=== PATIENT | male | born 1950 | race Caucasian/White ===

== ENCOUNTER 2017-10-20 12:46 | Emergency (ER) | payer BC, OTHER ==
[~2017-10-20] VITALS: Ht 172.7 cm; Wt 80.0 kg
[~2017-10-20 12:46] MED LIST: ASPIRIN325 MG PO; LIPITOR80 MG PO; NORVASC10 MG PO
[2017-10-20 14:02] LABS: BASOPHIL (%) 0.2 % (0-1); EOSINOPHIL (%) 1.2 % (0-5); EOSINOPHIL COUNT 0.1 K/uL (0-0.3); HEMATOCRIT 44.2 % (38.0-50.0); HEMOGLOBIN 15.4 G/DL (12.5-16.6); IMMATURE GRANULOCYTE (%) 0.2 % (0.0-0.7); LYMPHOCYTE COUNT 0.8 K/uL (1.0-2.8); MCH 31.8 PG (29.0-34.0); MCHC 34.8 G/DL (30.0-36.0); MCV 91.1 FL (86-99); MONOCYTE (%) 5.6 % (3-12); MONOCYTE COUNT 0.3 K/uL (0-0.8); NEUTROPHIL (%) 76.8 % (45-76); NEUTROPHIL COUNT 3.7 K/uL (1.8-6.4); PLATELET COUNT 150 K/uL (156-360); RBC DIS.WIDTH-CV 11.9 % (11.8-14.6); RBC DIS.WIDTH-SD 39.7 % (39-53); RED BLOOD COUNT 4.85 M/uL (4.00-5.50); WHITE BLOOD COUNT 4.9 K/uL (4.1-10.2)
[2017-10-20 14:10] LABS: ALBUMIN 3.6 g/dL (3.2-4.8); CHLORIDE 109 mEq/L (99-109); POTASSIUM 3.8 mEq/L (3.7-5.4); SODIUM 143 mEq/L (136-147)
[2017-10-20 14:13] LABS: GLUCOSE 131 mg/dL (70-99); PTT 26.1 SEC (25-37); TOTAL PROTEIN 5.7 g/dL (6.4-8.3)
[2017-10-20 14:15] LABS: TOTAL BILIRUBIN 1.1 mg/dL (0.0-1.0)
[2017-10-20 14:16] LABS: ALKALINE PHOSPHATASE 86 IU/L (3-129); CREATININE 0.8 mg/dL (0.6-1.3); GFR ESTIMATE (CALCULATED) > 59 mL/min/ (58.99-99999)
[2017-10-20 14:17] LABS: UREA NITROGEN (BUN) 19 mg/dL (9-23)
[2017-10-20 14:18] LABS: AST (GOT) 20 IU/L (2-34)
[2017-10-20 14:19] LABS: ALT (GPT) 23 IU/L (3-49)
[2017-10-20 14:20] LABS: LIPASE 24 U/L (1.0-51.0)
[2017-10-20 14:25] LABS: TROP-I INTERPRETATION NEGATIVE; TROPONIN-I < 0.01 ng/mL (0.0-0.30)
[2017-10-20] MEDS ORDERED: LEVAQUIN750 MG PO (16:48)
[2017-10-20] MEDS ORDERED: ZOFRAN4 MG PO (16:48)
[2017-10-20] MEDS ORDERED: PERCOCET 5/31 TABLET PO (16:48)
[2017-10-20] MEDS ORDERED: FLAGYL500 MG PO (16:48)
[2017-10-20 17:24] VITALS: BP 131/72
== END 2017-10-20 17:31 | disposition home or self-care (01) ==
LOC: EME 12:46
PROVIDERS: Emergency Medicine
DX: K52.9 Noninfective gastroenteritis and colitis, unspecified (principal); I10 Essential (primary) hypertension; I25.2 Old myocardial infarction; Z95.1 Presence of aortocoronary bypass graft
CPT/HCPCS: 71045; 74177; 80053; 83690; 84484; 85025; 85610; 85730; 93005; 99281; 99285; J2405; J7030